=== PATIENT | female | born 1955 | race Caucasian/White ===

== ENCOUNTER 2022-05-31 11:40 | Observation (INO) | payer BC, OTHER ==
[~2022-05-31] VITALS: Ht 177 cm; Wt 92.0 kg
[2022-05-31] VITALS (14 sets, daily range): BP systolic 120–155; BP diastolic 66–103
--- NOTE | 2022-05-31 11:49 | ED Chest Pain ---
General Stated Complaint: ARRHYTHMIA History of Present Illness Date Seen by Provider: May 31, 2022 Time Seen by Provider: 11:41 Initial Comments 68-year-old female with PMH of hypertension/anxiety/past breast cancer with mastectomy, is sent here from the clinic with complaints of left-sided chest pain which began today morning. Pain has been on and off and sometimes radiating down her left arm. Denies history of heart attacks or strokes. Patient takes daily lisinopril for her blood pressure and has been compliant with it. She has also taken it today. The blood pressure medication was newly started 2 months back. EMS reports that when they arrived on scene, the patient's blood pressure had a systolic of 200 over 180s, and it improved to 160/90 after receiving the first nitrate in the ambulance. In the ER patient continues to have chest pain intermittently. Denies fever, cough, shortness of breath, palpitations, diarrhea, nausea and vomiting, abdominal pain, headache, blurry vision. Patient denies taking any drugs or alcohol. Allergies and Home Medications Allergies Coded Allergies: No Known Drug Allergies (Unverified , 05/31/22) Patient Home Medication List Home Medication List Reviewed: Yes Review of Systems Review of Systems Constitutional: no symptoms reported EENTM: No Symptoms Reported Respiratory: No Symptoms Reported Cardiovascular: Chest Pain Gastrointestinal: No Symptoms Reported Genitourinary: No Symptoms Reported Musculoskeletal: no symptoms reported Skin: no symptoms reported Psychiatric/Neurological: No Symptoms Reported Endocrine: No Symptoms Reported Hematologic/Lymphatic: No Symptoms Reported Physical Exam Vital Signs Vital Signs - First Documented 05/31/22 11:40 Temp 36.2 Pulse 89 Resp 16 B/P (MAP) 162/87 (112) Pulse Ox 98 O2 Delivery Room Air Capillary Refill : Height, Weight, BMI Height: '" Weight: lbs. oz. kg; BMI Method: General Appearance: WD/WN, Mild Distress HEENT: PERRL/EOMI, Normal ENT Inspection Neck: Full Range of Motion, Normal Inspection, Non Tender, Supple Respiratory: Chest Non Tender, Lungs Clear, Normal Breath Sounds, No Accessory Muscle Use, No Respiratory Distress Cardiovascular: Regular Rate, Rhythm, No Murmur, Normal Peripheral Pulses Gastrointestinal: Normal Bowel Sounds, Non Tender, Soft Extremity: Normal Range of Motion Neurologic/Psychiatric: Alert, Oriented x3, No Motor/Sensory Deficits Skin: Normal Color Lymphatic: No Adenopathy Progress/Results/Core Measures Results/Orders Lab Results Laboratory Tests Test 05/31/22 11:49 05/31/22 13:00 05/31/22 13:21 Range/Units White Blood Count 7.1 4.3-11.0 10^3/uL Red Blood Count 4.45 3.80-5.11 10^6/uL Hemoglobin 13.1 11.5-16.0 g/dL Hematocrit 40 35-52 % Mean Corpuscular Volume 89 80-99 fL Mean Corpuscular Hemoglobin 29 25-34 pg Mean Corpuscular Hemoglobin Concent 33 32-36 g/dL Red Cell Distribution Width 12.9 10.0-14.5 % Platelet Count 249 130-400 10^3/uL Mean Platelet Volume 9.3 9.0-12.2 fL Immature Granulocyte % (Auto) 1 % Neutrophils (%) (Auto) 48 42-75 % Lymphocytes (%) (Auto) 42 12-44 % Monocytes (%) (Auto) 6 0-12 % Eosinophils (%) (Auto) 2 0-10 % Basophils (%) (Auto) 1 0-10 % Neutrophils # (Auto) 3.4 1.8-7.8 10^3/uL Lymphocytes # (Auto) 3.0 1.0-4.0 10^3/uL Monocytes # (Auto) 0.4 0.0-1.0 10^3/uL Eosinophils # (Auto) 0.2 0.0-0.3 10^3/uL Basophils # (Auto) 0.1 0.0-0.1 10^3/uL Immature Granulocyte # (Auto) 0.1 0.0-0.1 10^3/uL Prothrombin Time 12.7 12.2-14.7 SEC INR Comment 0.9 0.8-1.4 Activated Partial Thromboplast Time 26 24-35 SEC Sodium Level 140 135-145 MMOL/L Potassium Level 3.6 3.6-5.0 MMOL/L Chloride Level 104 98-107 MMOL/L Carbon Dioxide Level 25 21-32 MMOL/L Anion Gap 11 5-14 MMOL/L Blood Urea Nitrogen 13 7-18 MG/DL Creatinine 0.81 0.60-1.30 MG/DL Estimat Glomerular Filtration Rate 80 BUN/Creatinine Ratio 16 Glucose Level 135 H 70-105 MG/DL Calcium Level 9.8 8.5-10.1 MG/DL Corrected Calcium 9.5 8.5-10.1 MG/DL Magnesium Level 1.9 1.6-2.4 MG/DL Total Bilirubin 0.3 0.1-1.0 MG/DL Aspartate Amino Transf (AST/SGOT) 12 5-34 U/L Alanine Aminotransferase (ALT/SGPT) 14 0-55 U/L Alkaline Phosphatase 110 40-136 U/L Troponin I < 0.30 < 0.30 <0.30 NG/ML Total Protein 7.6 6.4-8.2 GM/DL Albumin 4.4 3.2-4.5 GM/DL Urine Color YELLOW Urine Clarity CLEAR Urine pH 6.0 5-9 Urine Specific [place] <=1.005 1.016-1.022 Urine Protein NEGATIVE NEGATIVE Urine Glucose (UA) NEGATIVE NEGATIVE Urine Ketones NEGATIVE NEGATIVE Urine Nitrite NEGATIVE NEGATIVE Urine Bilirubin NEGATIVE NEGATIVE Urine Urobilinogen 0.2 < = 1.0 MG/DL Urine Leukocyte Esterase 1+ H NEGATIVE Urine RBC (Auto) TRACE-I H NEGATIVE Urine RBC RARE /HPF Urine WBC RARE /HPF Urine Squamous Epithelial Cells 0-2 /HPF Urine Crystals NONE /LPF Urine Bacteria NEGATIVE /HPF Urine Casts NONE /LPF Urine Mucus NEGATIVE /LPF Urine Culture Indicated NO Urine Opiates Screen POSITIVE H NEGATIVE Urine Oxycodone Screen NEGATIVE NEGATIVE Urine Methadone Screen NEGATIVE NEGATIVE Urine Propoxyphene Screen NEGATIVE NEGATIVE Urine Barbiturates Screen NEGATIVE NEGATIVE Ur Tricyclic Antidepressants Screen NEGATIVE NEGATIVE Urine Phencyclidine Screen NEGATIVE NEGATIVE Urine Amphetamines Screen NEGATIVE NEGATIVE Urine Methamphetamines Screen NEGATIVE NEGATIVE Urine Benzodiazepines Screen NEGATIVE NEGATIVE Urine Cocaine Screen NEGATIVE NEGATIVE Urine Cannabinoids Screen NEGATIVE NEGATIVE My Orders Orders - HARPER MICHELLE MD Chest 1 View Ap/Pa Only (05/31/22 11:51) Cbc With Automated Diff (05/31/22 11:51) Comprehensive Metabolic Panel (05/31/22 11:51) Drug Screen Stat (Urine) (05/31/22 11:51) Magnesium (05/31/22 11:51) Thyroid Stimulating Hormone (05/31/22 11:51) Ua Culture If Indicated (05/31/22 11:51) Troponin I Fs (05/31/22 11:51) Ekg Tracing (05/31/22 11:52) Famotidine Injection (Pepcid Injection) (05/31/22 12:00) Protime With Inr (05/31/22 11:58) Partial Thromboplastin Time (05/31/22 11:58) O2 (05/31/22 11:58) Monitor-Rhythm Ecg Trace Only (05/31/22 11:58) Nitroglycerin 0.4 Mg Btl 25's (Nitrostat (05/31/22 12:00) Morphine Injection (Morphine Injection (05/31/22 11:58) Ed Iv/Invasive Line Start (05/31/22 11:58) Nitroglycerin 0.4 Mg Btl 25's (Nitrostat (05/31/22 11:58) Morphine Injection (Morphine Injection (05/31/22 11:59) Lorazepam Injection (Ativan Injection) (05/31/22 12:54) Troponin I Fs (05/31/22 13:05) Lorazepam Tablet (Ativan Tablet) (05/31/22 13:05) Ekg Tracing (05/31/22 13:05) Lorazepam Injection (Ativan Injection) (05/31/22 13:15) Medications Given in ED Current Medications Medications Dose Ordered Sig/Gianni Route Start Time Stop Time Status Last Admin Dose Admin Famotidine 20 mg ONCE ONCE IVP 05/31/22 12:00 05/31/22 12:01 DC 05/31/22 12:02 20 MG Lorazepam 0.5 mg ONCE ONCE IVP 05/31/22 13:15 05/31/22 13:16 DC 05/31/22 13:00 0.5 MG Nitroglycerin 0.4 mg UD PRN SL 05/31/22 12:00 05/31/22 12:05 0.4 MG Vital Signs/I&O 05/31/22 11:40 Temp 36.2 Pulse 89 Resp 16 B/P (MAP) 162/87 (112) Pulse Ox 98 O2 Delivery Room Air Progress Progress Note : Progress Note CHEST PAIN: STABLE ANGINA: - CXR: normal - Troponin and EKG x2 is non-ischemic - Labs normal - UA normal - ASA 324 given by EMS along with 1st nitrate - Nitrate sublingual x2, Morphine 1mg iv, and Pepcid 20mg iv in ER with improvement in pain but pain is 3/10 - Discussed with hospitlaist and heavy equipment diesel mechanic and will transfer for observation and monitoring. HYPERTENSIVE URGENCY, resolved: - When EMS arrived on scene, pt's BP was 200'2/ 180's, after first nitrate BP improved to 160/ 90, after completion of nitrates in ER, BP is now normal Diagnostic Imaging Diagonstic Imaging: Xray Plain Films/CT/US/NM/MRI: chest Comments [facility]. [place], [place] NAME: ARNEL GODOY [facility] REC#: [id number] PT STATUS: REG ER : 07/27/1953 PHYSICIAN: HARPER MICHELLE MD ADMIT DATE: 05/31/22/ER FS Draft Date of Exam:05/31/22 CHEST 1 VIEW AP/PA ONLY INDICATION: chest pain. TECHNIQUE: Single view chest 11:54 AM. CORRELATION STUDY: None FINDINGS: The heart size, mediastinal configuration and pulmonary vascularity are within normal limits. The lungs are clear with no consolidating infiltrate. There is no significant effusion or pneumothorax. IMPRESSION: 1. Negative appearing single view chest. Dictated on workstation # [id number] Dict: 05/31/22 1202 Trans: 05/31/22 1203 DO [id number] Interpreted by: SHAHID ISRAEL DO Electronically signed by: Departure Impression Primary Impression: Chest pain Qualified Codes: R07.9 - Chest pain, unspecified Additional Impression: Stable angina Disposition: 30 STILL A PATIENT Condition: Stable Admissions Decision to Admit Reason: Admit from ER (General) Decision to Admit/Date: May 31, 2022 Time/Decision to Admit Time: 13:30 Transfer Transfer Reason: Exceeds level of care Time Spoke to Accepting Phy: 14:00 Transfer Progress Notes Discussed with Dr Tatum - Admit to telemetry Obs Transfer Facility: [facility] Method of Transfer: EMS HARPER MICHELLE MD May 31, 2022 11:49
[2022-05-31 11:55] LABS: BASOPHILS # (AUTO) 0.1 10^3/uL (0.0-0.1); BASOPHILS % (AUTO) 1 % (0-10); EOSINOPHILS # (AUTO) 0.2 10^3/uL (0.0-0.3); EOSINOPHILS % (AUTO) 2 % (0-10); HEMATOCRIT 40 % (35-52); HEMOGLOBIN 13.1 g/dL (11.5-16.0); LYMPHOCYTES % (AUTO) 42 % (12-44); MEAN CORPUSCULAR HEMOGLOBIN 29 pg (25-34); MEAN CORPUSCULAR HGB CONC 33 g/dL (32-36); MEAN CORPUSCULAR VOLUME 89 fL (80-99); MEAN PLATELET VOLUME 9.3 fL (9.0-12.2); MONOCYTES # (AUTO) 0.4 10^3/uL (0.0-1.0); MONOCYTES % (AUTO) 6 % (0-12); NEUTROPHILS # (AUTO) 3.4 10^3/uL (1.8-7.8); NEUTROPHILS % (AUTO) 48 % (42-75); PLATELET COUNT 249 10^3/uL (130-400); WHITE BLOOD COUNT 7.1 10^3/uL (4.3-11.0)
[2022-05-31] MEDS ORDERED: NITROGLYCERIN 0.4 MG SL TABS BTL 25'S SL ONE (11:58)
[2022-05-31] MEDS ORDERED: morphine INJ 10 MG/ML 1ML (SYR OR VIAL) IVP STA (11:58)
[2022-05-31] MEDS ORDERED: morphine INJ 10 MG/ML 1ML (SYR OR VIAL) ONE (11:59)
[2022-05-31] MEDS ORDERED: FAMOTIDINE 20MG/2ML IV (PEPCID) IVP ONE (12:00)
[2022-05-31] MEDS: NITROGLYCERIN 0.4 MG SL TABS BTL 25'S SL PRN ×4 (12:03→20:27)
--- NOTE | 2022-05-31 12:03 | Diagnostic Imaging Report ---
INDICATION: chest pain. TECHNIQUE: Single view chest 11:54 AM. CORRELATION STUDY: None FINDINGS: The heart size, mediastinal configuration and pulmonary vascularity are within normal limits. The lungs are clear with no consolidating infiltrate. There is no significant effusion or pneumothorax. IMPRESSION: 1. Negative appearing single view chest. Dictated by: Dictated on workstation # [id number]
[2022-05-31 12:22] LABS: ALANINE AMINOTRANSFERASE 14 U/L (0-55); ALBUMIN 4.4 GM/DL (3.2-4.5); ALKALINE PHOSPHATASE 110 U/L (40-136); BILIRUBIN,TOTAL 0.3 MG/DL (0.1-1.0); BUN/CREATININE RATIO 16; CALCIUM 9.8 MG/DL (8.5-10.1); CARBON DIOXIDE 25 MMOL/L (21-32); CHLORIDE 104 MMOL/L (98-107); CREATININE SERUM 0.81 MG/DL (0.60-1.30); GFR ESTIMATED 80; GLUCOSE 135 MG/DL (70-105); MAGNESIUM 1.9 MG/DL (1.6-2.4); POTASSIUM 3.6 MMOL/L (3.6-5.0); SODIUM 140 MMOL/L (135-145); TOTAL PROTEIN 7.6 GM/DL (6.4-8.2)
[2022-05-31 12:41] LABS: INR 0.9 (0.8-1.4); PROTHROMBIN TIME PATIENT 12.7 SEC (12.2-14.7)
[2022-05-31] MEDS ORDERED: LORazepam INJ 2 MG/ML (ATIVAN) VIAL ONE (12:54)
[2022-05-31] MEDS ORDERED: LORazepam 0.5 MG (ATIVAN) TABLET PO STA (13:05)
[2022-05-31] MEDS ORDERED: LORazepam INJ 2 MG/ML (ATIVAN) VIAL IVP ONE (13:15)
[2022-05-31 13:33] LABS: BILIRUBIN,URINE NEGATIVE (NEGATIVE); CLARITY,URINE CLEAR; COLOR,URINE YELLOW; GLUCOSE, URINE (UA) NEGATIVE (NEGATIVE); KETONES,URINE NEGATIVE (NEGATIVE); LEUKOCYTE ESTERASE ,URINE 1+ (NEGATIVE); NITRITE,URINE NEGATIVE (NEGATIVE); PROTEIN,URINE NEGATIVE (NEGATIVE)
[2022-05-31 13:39] LABS: BACTERIA,URINE NEGATIVE /HPF; RBC,URINE RARE /HPF; SQUAMOUS EPITHELIAL CELL,UR 0-2 /HPF; WBC,URINE RARE /HPF
[2022-05-31 13:40] LABS: AMPHETAMINE SCREEN, URINE NEGATIVE (NEGATIVE); BARBITURATE SCREEN URINE NEGATIVE (NEGATIVE); BENZODIAZEPINES SCREEN URINE NEGATIVE (NEGATIVE); CANNABINOID SCREEN, URINE NEGATIVE (NEGATIVE); COCAINE SCREEN URINE NEGATIVE (NEGATIVE); METHADONE STAT NEGATIVE (NEGATIVE); OPIATE SCREEN URINE POSITIVE (NEGATIVE); OXYCODONE STAT NEGATIVE (NEGATIVE); PROPOXYPHENE STAT NEGATIVE (NEGATIVE); TRICYCLIC ANTIDEPRESSANTS SCRE NEGATIVE (NEGATIVE)
[2022-05-31] MEDS ORDERED: PATIENT MAY USE OWN MEDS, ALL PO SCH (15:30)
[2022-05-31] MEDS ORDERED: ONDANSETRON 4 MG/2 ML (SDV) Z0FRAN IVP PRN (15:30)
[2022-05-31] MEDS ORDERED: morphine INJ 4 MG/ML 1 ML (VIAL/SYRINGE) IV PRN (15:30)
--- NOTE | 2022-05-31 17:11 | Consultation-Cardiology ---
HPI-Cardiology Cardiology Consultation: Date of Consultation 05/31/22 Date of Admission 05/31/22 Attending Physician Kelli Brewster Admitting Physician Admitting Physician: Nancy Tatum MD Attending Physician: Nancy Tatum MD Consulting Physician DANIEL COLE JR, MD HPI: Time Seen by a Provider: 17:23 Chief Complaint: REASON FOR CONSULTATION: Chest pain. I had the pleasure of seeing Rosetta on the cardiac stepdown unit at [facility] in [place], [place] today. She has no known history of coronary artery disease. This morning when she woke up to get ready for work, she had general malaise. She did not feel "right" but did not have any specific complaint right at that time. She got ready for work and then she started having a slight discomfort in the center of her chest. She denies associated complaints. She went to work and then the chest discomfort became more significant. This felt like a pressure in her chest as well as a sharp pain. At times this made her feel short of breath. She also had some back pain in between her shoulder blades. She thought that maybe her blood pressure was high so she went to an urgent care and her blood pressure was 200/100 mmHg. The urgent care called an ambulance and she was taken to the emergency room in [place] for further evaluation. She had 2 negative troponin levels and an unremarkable electrocardiogram but due to persistent chest discomfort, she was transferred to our hospital for further treatment and evaluation. In the outside hospital she was also given some sublingual nitroglycerin which she feels as though helped with the pain but this did not completely resolved. She does not recall ever having this sort of discomfort in the past. She denies paroxysmal nocturnal dyspnea, orthopnea or palpitations. She did have some slight lightheadedness with the chest discomfort today but denies any syncope. She has had intermittent peripheral edema mainly involving her right leg in the past. She actually had a venous ablation on the right lower extremity a few years ago. Because of the chest pain, a cardiology consultation was requested. Certain portions of this document may have been dictated utilizing voice recognition technology. Inherent to this technology, typographical and grammatical errors may exist. As much as I am diligent to identify and correct these mistakes, some errors may remain in the document. Review of Systems-Cardiology Review of Systems Other comments Review of 10 organ systems is as per the history of present illness, otherwise negative. [id number] Hx Patient Social History Marrital Status: Employed/Student: employed Smoking Status: Never a Smoker Have you traveled recently?: No Alcohol Use?: No Pt feels they are or have been: No Past Medical History PMH As described under Assessment. Family Medical History Family Medical History: Her father had heart disease in his 50's but lived to his 80's. Allergies and Home Medications Allergies Coded Allergies: Penicillins (Verified Allergy, Unknown, Rash, 05/31/22) amoxicillin (Verified Allergy, Unknown, Rash, 05/31/22) Patient Home Medication List Home Medication List Reviewed: Yes Exam Vital Signs Vital Signs Date Time Temp Pulse Resp B/P (MAP) Pulse Ox O2 Delivery O2 Flow Rate FiO2 05/31/22 16:30 74 15 131/78 (107) 96 Room Air 05/31/22 15:44 36.3 Physical Exam General: Alert. No acute distress. Well nourished and appears stated age. Eye: Extraocular movements are intact. Conjunctivae are clear. There are no xanthelasma. HENT: Normocephalic. Atraumatic. Carotid pulsations 2/2 without bruits. Neck: Jugular venous pressure does not appear elevated. No thyromegaly appreciated. Respiratory: Lungs are clear to auscultation. Respirations are non-labored. Breath sounds are equal. Symmetrical chest wall expansion. Cardiovascular: Normal rate. Regular rhythm. No murmur. No gallop. Point of maximal impulse is not appear displaced. Good pulses equal in all extremities. No edema. Gastrointestinal: Soft. Normal bowel sounds. Skin: Skin turgor is normal. There is no pallor. Musculoskeletal: No kyphosis or scoliosis appreciated. Neurologic: Alert and oriented to person, place, time. Cranial nerves 3-12 appear grossly intact. The patient has good motor tone strength in the upper and lower extremities bilaterally. Psychiatric: Cooperative. Appropriate mood & affect. Labs Laboratory Tests Test 05/31/22 11:49 05/31/22 13:00 05/31/22 13:21 Range/Units White Blood Count 7.1 4.3-11.0 10^3/uL Red Blood Count 4.45 3.80-5.11 10^6/uL Hemoglobin 13.1 11.5-16.0 g/dL Hematocrit 40 35-52 % Mean Corpuscular Volume 89 80-99 fL Mean Corpuscular Hemoglobin 29 25-34 pg Mean Corpuscular Hemoglobin Concent 33 32-36 g/dL Red Cell Distribution Width 12.9 10.0-14.5 % Platelet Count 249 130-400 10^3/uL Mean Platelet Volume 9.3 9.0-12.2 fL Immature Granulocyte % (Auto) 1 % Neutrophils (%) (Auto) 48 42-75 % Lymphocytes (%) (Auto) 42 12-44 % Monocytes (%) (Auto) 6 0-12 % Eosinophils (%) (Auto) 2 0-10 % Basophils (%) (Auto) 1 0-10 % Neutrophils # (Auto) 3.4 1.8-7.8 10^3/uL Lymphocytes # (Auto) 3.0 1.0-4.0 10^3/uL Monocytes # (Auto) 0.4 0.0-1.0 10^3/uL Eosinophils # (Auto) 0.2 0.0-0.3 10^3/uL Basophils # (Auto) 0.1 0.0-0.1 10^3/uL Immature Granulocyte # (Auto) 0.1 0.0-0.1 10^3/uL Prothrombin Time 12.7 12.2-14.7 SEC INR Comment 0.9 0.8-1.4 Activated Partial Thromboplast Time 26 24-35 SEC Sodium Level 140 135-145 MMOL/L Potassium Level 3.6 3.6-5.0 MMOL/L Chloride Level 104 98-107 MMOL/L Carbon Dioxide Level 25 21-32 MMOL/L Anion Gap 11 5-14 MMOL/L Blood Urea Nitrogen 13 7-18 MG/DL Creatinine 0.81 0.60-1.30 MG/DL Estimat Glomerular Filtration Rate 80 BUN/Creatinine Ratio 16 Glucose Level 135 H 70-105 MG/DL Calcium Level 9.8 8.5-10.1 MG/DL Corrected Calcium 9.5 8.5-10.1 MG/DL Magnesium Level 1.9 1.6-2.4 MG/DL Total Bilirubin 0.3 0.1-1.0 MG/DL Aspartate Amino Transf (AST/SGOT) 12 5-34 U/L Alanine Aminotransferase (ALT/SGPT) 14 0-55 U/L Alkaline Phosphatase 110 40-136 U/L Troponin I < 0.30 < 0.30 <0.30 NG/ML Total Protein 7.6 6.4-8.2 GM/DL Albumin 4.4 3.2-4.5 GM/DL Thyroid Stimulating Hormone (TSH) 2.38 0.35-4.94 UIU/ML Urine Color YELLOW Urine Clarity CLEAR Urine pH 6.0 5-9 Urine Specific [place] <=1.005 1.016-1.022 Urine Protein NEGATIVE NEGATIVE Urine Glucose (UA) NEGATIVE NEGATIVE Urine Ketones NEGATIVE NEGATIVE Urine Nitrite NEGATIVE NEGATIVE Urine Bilirubin NEGATIVE NEGATIVE Urine Urobilinogen 0.2 < = 1.0 MG/DL Urine Leukocyte Esterase 1+ H NEGATIVE Urine RBC (Auto) TRACE-I H NEGATIVE Urine RBC RARE /HPF Urine WBC RARE /HPF Urine Squamous Epithelial Cells 0-2 /HPF Urine Crystals NONE /LPF Urine Bacteria NEGATIVE /HPF Urine Casts NONE /LPF Urine Mucus NEGATIVE /LPF Urine Culture Indicated NO Urine Opiates Screen POSITIVE H NEGATIVE Urine Oxycodone Screen NEGATIVE NEGATIVE Urine Methadone Screen NEGATIVE NEGATIVE Urine Propoxyphene Screen NEGATIVE NEGATIVE Urine Barbiturates Screen NEGATIVE NEGATIVE Ur Tricyclic Antidepressants Screen NEGATIVE NEGATIVE Urine Phencyclidine Screen NEGATIVE NEGATIVE Urine Amphetamines Screen NEGATIVE NEGATIVE Urine Methamphetamines Screen NEGATIVE NEGATIVE Urine Benzodiazepines Screen NEGATIVE NEGATIVE Urine Cocaine Screen NEGATIVE NEGATIVE Urine Cannabinoids Screen NEGATIVE NEGATIVE ECG Impression ECG Comment Electrocardiogram from the outside emergency room as well is here in our hospital both shows sinus rhythm with early transition. Diagnosis/Problems Diagnosis/Problems (1) Chest pain Assessment & Plan: Exact etiology unclear. Some of her discomfort sounds cardiac whereas some of this more pleuritic type of chest discomfort sounds noncardiac. Her only cardiac risk factor seems to be hypertension. She does not have any ischemic changes on her electrocardiogram but does have early transition which could be a sign of an old posterior myocardial infarction or just secondary to lead placement on the chest leads. I have ordered a D-dimer to screen for possible pulmonary embolism. I will also give her gastrointestinal cocktail and start her on a proton pump inhibitor. I have also ordered low strength aspirin. I have ordered an echocardiogram for the morning. Unfortunately, we are coming into a long weekend and will not be able to perform any sort of stress test until Friday. At this time, I do not see any reason for an invasive cardiac evaluation. (2) Abnormal electrocardiogram Assessment & Plan: As above, she has a borderline abnormal electrocardiogram showing early transition. However, there is no other obvious evidence of prior infarct or ischemia at rest. We will proceed as above. (3) Primary hypertension Assessment & Plan: I have ordered her home dose of lisinopril. This may need to be adjusted if her blood pressure remains elevated. (4) Chronic venous insufficiency of lower extremity Assessment & Plan: She had a previous venous ablation of the right lower extremity. I have ordered a D-dimer to see whether or not she may venous thrombosis or embolism causing her chest discomfort. DANIEL COLE JR, MD May 31, 2022 17:11
[2022-05-31] MEDS ORDERED: ANTACID SUSP 30 ML UDC (MYLANTA) PO NR (17:45)
[2022-05-31] MEDS ORDERED: PANTOPRAZOLE 40 MG (PROTONIX) TAB PO NR (17:45)
[2022-05-31] MEDS ORDERED: LIDOCAINE 2% VISCOUS 15 ML UDC PO NR (17:45)
[2022-05-31] MEDS ORDERED: IOHEXOL 350 MG/ML 100 ML (OMNIPAQUE 350) VIAL IV ONE (18:30)
[2022-05-31] MEDS ORDERED: CATHETER FLUSH 10 ML SYR IV PRN (18:30)
[2022-05-31] MEDS ORDERED: ENOXAPARIN 100 MG/1 ML (LOVENOX) SYR SC NR (18:30)
[2022-05-31] MEDS ORDERED: HOLD METFORMIN - RECEIVED CONTRAST 20 ML VIAL IV SCH (18:30)
[2022-05-31] MEDS ORDERED: NS 100 ML (IVPB) BAG IV ONE (18:30)
[2022-05-31] MEDS ORDERED: ACETAMINOPHEN 500 MG TAB (TYLENOL) PO PRN (19:00)
--- NOTE | 2022-05-31 20:34 | Diagnostic Imaging Report ---
PROCEDURE: CT angiography of the chest with contrast. TECHNIQUE: Multiple contiguous axial images were obtained through the chest after uneventful bolus administration of intravenous contrast. 3D reconstructed CTA MIP acquisitions were also performed. Auto Exposure Controls were utilized during the CT exam to meet ALARA standards for radiation dose reduction. INDICATION: Chest pain, elevated D-dimer. COMPARISON: Radiographs of the chest from the same date. FINDINGS: No significant adenopathy within the chest. No aneurysmal dilatation of the thoracic aorta. The heart is within normal limits in size. No significant pericardial effusion. No pleural effusion. The trachea is patent. No pneumothorax. Subpleural atelectasis and fibrosis is noted, particularly posteriorly. Mild bibasilar scarring and/or atelectasis. No significant filling defect within the central or segmental pulmonary arteries. Heterogeneous enhancement of the pancreas is partially visualized, though this is not well included within the [id number] and this is a different phase of enhancement than the rest of the chest. Surgical clips within the chest, bilaterally. Bilateral mastectomies. No acute osseous abnormality. IMPRESSION: 1. No significant pulmonary embolus. 2. Heterogeneous enhancement of the pancreas. This is favored to simply relate to phase of enhancement. Recommend correlation with laboratory values. If there is clinical concern for the pancreas, itself, then a dedicated CT of the abdomen with contrast would be recommended. 3. Mild bilateral interstitial lung disease versus atelectasis. Dictated by: Dictated on workstation # [id number]
[2022-06-01] VITALS: BP 134/89
[2022-06-01 04:00] VITALS: BP 113/74
[2022-06-01 05:08] LABS: HEMATOCRIT 37 % (35-52); MEAN CORPUSCULAR HEMOGLOBIN 30 pg (25-34); MEAN CORPUSCULAR HGB CONC 32 g/dL (32-36); MEAN CORPUSCULAR VOLUME 91 fL (80-99); MEAN PLATELET VOLUME 9.5 fL (9.0-12.2); PLATELET COUNT 221 10^3/uL (130-400)
[2022-06-01 05:22] LABS: POTASSIUM 3.9 MMOL/L (3.6-5.0)
[2022-06-01 05:23] LABS: CALCIUM 9.1 MG/DL (8.5-10.1)
[2022-06-01 05:27] LABS: CREATININE SERUM 0.77 MG/DL (0.60-1.30)
[2022-06-01] MEDS ORDERED: VENlafaxine XR 75 MG (EFFEXOR XR) CAP PO SCH (07:00)
[2022-06-01 08:27] VITALS: BP 122/79
--- NOTE | 2022-06-01 08:59 | Short Stay Summary-Hospitalist ---
History of Present Illness HPI/Chief Complaint Patient is 66-year-old female with a past medical history of breast cancer and hypertension who presented to the emergency department due to chest pain. She states that she woke up yesterday morning feeling "not right." She went to work and continued to have this off feeling but developed some chest discomfort and tingling in her arm. She also felt like she could hear noises in her ears which she associates with high blood pressure. She decided to seek evaluation in urgent care where they found her blood pressure to be over 200 systolic and over 100 diastolic. They referred her to the emergency department for further work-up. She was found to have a negative troponin and EKG but was admitted for ACS rule out. She was given nitro which helped to bring her blood pressure down and subsequently resolved her chest pain. This morning she has no complaints and is feeling better. Her blood pressure has improved significantly. Source: patient Date Seen 06/01/22 Time Seen by a Provider: 08:57 Attending Physician Kelli Brewster PCP Admitting Physician: Chelly Tatum MD Attending Physician: Chelly Tatum MD Referring Physician Date of Admission May 31, 2022 at 15:33 Home Medications & Allergies Home Medications Reviewed patient Home Medication Reconciliation performed by pharmacy medication reconciliations landscape management technician and/or nursing. Patients Allergies have been reviewed. Allergies Allergies Coded Allergies Penicillins (Verified Allergy, Unknown, Rash, 05/31/22) amoxicillin (Verified Allergy, Unknown, Rash, 05/31/22) Past Pnjbino-Psoaih-Qncumh Hx Patient Social History Marrital Status: Employed/Student: employed Tobacco Use?: No Smoking Status: Never a Smoker Use of E-Cig and/or Vaping dev: No Substance use?: No Alcohol Use?: No Pt feels they are or have been: No Immunizations Up To Date First/Initial COVID19 Vaccinat: MAY 2021 MODERNA Second COVID19 Vaccination Eran: JUL 2021 MODERN Current Status status: No Advance Directives: No Communicates: Verbally Primary Language: Arabic Preferred Spoken Language: Arabic Is interpretation needed?: No Past Medical History Hypertension Breast What Type of Treatment Did You: Chemotherapy, Surgical Intervention Family Medical History Reviewed Nursing Family Hx Heart Disease (dad- [place] 60s) Review of Systems Constitutional: No chills EENTM: see HPI Respiratory: No cough, No dyspnea on exertion, No short of breath Cardiovascular: chest pain; No edema, No Hx of Intervention, No palpitations Gastrointestinal: no symptoms reported Genitourinary: no symptoms reported Musculoskeletal: no symptoms reported Skin: no symptoms reported Psychiatric/Neurological: No Symptoms Reported Physical Exam Physical Exam Vital Signs Vital Signs - First Documented 05/31/22 11:40 Temp 36.2 Pulse 89 Resp 16 B/P (MAP) 162/87 (112) Pulse Ox 98 O2 Delivery Room Air Capillary Refill : Less Than 3 Seconds Height, Weight, BMI Height: '" Weight: lbs. oz. kg; 29.36 BMI Method: General Appearance: No Apparent Distress, WD/WN HEENT: PERRL/EOMI, Moist Mucous Membranes; No Scleral Icterus (L), No Scleral Icterus (R) Neck: Normal Inspection, Supple Respiratory: Lungs Clear, No Accessory Muscle Use, No Respiratory Distress Cardiovascular: Regular Rate, Rhythm, No Murmur, Normal Peripheral Pulses Gastrointestinal: Normal Bowel Sounds, Non Tender, Soft; No Distended, No Guarding Extremity: Normal Capillary Refill, No Calf Tenderness, No Pedal Edema Neurologic/Psychiatric: Alert, Oriented x3, Normal Mood/Affect; No Aphasia, No Facial Droop Skin: Normal Color, Warm/Dry Results Results/Procedures Labs Laboratory Tests 05/31/22 11:49 06/01/22 04:45 06/01/22 04:47 Patient resulted labs reviewed. Imaging: Reviewed Imaging Report Imaging [facility], [place] NAME: ARNEL GODOY [facility] REC#: [id number] PT STATUS: REG ER : 1955 PHYSICIAN: HARPER MICHELLE MD ADMIT DATE: 05/31/22/ER FS Signed Date of Exam:05/31/22 CHEST 1 VIEW AP/PA ONLY INDICATION: chest pain. TECHNIQUE: Single view chest 11:54 AM. CORRELATION STUDY: None FINDINGS: The heart size, mediastinal configuration and pulmonary vascularity are within normal limits. The lungs are clear with no consolidating infiltrate. There is no significant effusion or pneumothorax. IMPRESSION: 1. Negative appearing single view chest. Dictated by: Dictated on workstation # [id number] Dict: 05/31/22 1202 Trans: 05/31/221411 DO Interpreted by: SHAHID ISRAEL DO Electronically signed by: SHAHID ISRAEL DO 05/31/221411 [facility] [place], [place] NAME: ARNEL GODOY [facility] REC#: [id number] PT STATUS: ADM [place] : 1955 PHYSICIAN: DANIEL WONG JR, MD ADMIT DATE: 05/31/22/[facility] Signed Date of Exam:05/31/22 CT ANGIO CHEST W PROCEDURE: CT angiography of the chest with contrast. TECHNIQUE: Multiple contiguous axial images were obtained through the chest after uneventful bolus administration of intravenous contrast. 3D reconstructed CTA MIP acquisitions were also performed. Auto Exposure Controls were utilized during the CT exam to meet ALARA standards for radiation dose reduction. INDICATION: Chest pain, elevated D-dimer. COMPARISON: Radiographs of the chest from the same date. FINDINGS: No significant adenopathy within the chest. No aneurysmal dilatation of the thoracic aorta. The heart is within normal limits in size. No significant pericardial effusion. No pleural effusion. The trachea is patent. No pneumothorax. Subpleural atelectasis and fibrosis is noted, particularly posteriorly. Mild bibasilar scarring and/or atelectasis. No significant filling defect within the central or segmental pulmonary arteries. Heterogeneous enhancement of the pancreas is partially visualized, though this is not well included within the [id number] and this is a different phase of enhancement than the rest of the chest. Surgical clips within the chest, bilaterally. Bilateral mastectomies. No acute osseous abnormality. IMPRESSION: 1. No significant pulmonary embolus. 2. Heterogeneous enhancement of the pancreas. This is favored to simply relate to phase of enhancement. Recommend correlation with laboratory values. If there is clinical concern for the pancreas, itself, then a dedicated CT of the abdomen with contrast would be recommended. 3. Mild bilateral interstitial lung disease versus atelectasis. Dictated by: Dictated on workstation # [id number] Dict: 05/31/222001 Trans: 05/31/222148 PJE [id number] Interpreted by: TRISTIAN DOMÍNGUEZ MD Electronically signed by: TRISTIAN DOMÍNGUEZ MD 05/31/222148 Short Stay Diagnosis Discharge Diagnosis-Short Stay Admission Diagnosis Chest pain Final Discharge Diagnosis HTN Urgency Conclusion Plan HTN Urgency Chest pain HLD BP was 200/100 at urgent care prior to arrival Chest pain improved with nitro and BP control Cardiology consulted BP now well controlled Troponin negastive x3 CTA without evidence of PE Discharge home with outpatient follow up with Dr Wong Diagnosis/Problems Diagnosis/Problems (1) Hypertensive urgency (2) Chest pain (3) Mixed hyperlipidemia (4) Chronic venous insufficiency of lower extremity Clinical Quality Measures AMI/AHF: ASA po Prior to arrival: Yes ([phone]) CHELLY TATUM MD Jun 01, 2022 08:59
[2022-06-01] MEDS ORDERED: ASPIRIN E.C. 81 MG (ECOTRIN) TAB PO SCH (09:00)
[2022-06-01] MEDS ORDERED: PANTOPRAZOLE 40 MG (PROTONIX) TAB PO SCH (09:00)
[2022-06-01] MEDS ORDERED: lisINopril 10 MG (PRINIVIL) TABLET PO SCH (09:00)
[2022-06-01] MEDS ORDERED: ATOR20TA49 PO (09:15)
[2022-06-01] MEDS ORDERED: PANT40TA2 PO (09:17)
--- NOTE | 2022-06-01 09:19 | Cardiology Progress Note ---
Progress Note-Cardiology Events since last exam Date Seen by Provider: Jun 01, 2022 Time Seen by Provider: 09:18 Events since last exam I am following her due to chest pain. Overnight, her chest pain resolved. She denies dyspnea, palpitations, syncope, or ankle edema. She would like to go home today. Certain portions of this document may have been dictated utilizing voice recognition technology. Inherent to this technology, typographical and grammatical errors may exist. As much as I am diligent to identify and correct these mistakes, some errors may remain in the document. Vitals Last set of Vitals Signs Vital Signs 06/01/22 06/01/22 08:27 08:49 Temp 36.6 Pulse 66 Resp 16 B/P (MAP) 122/79 (93) Pulse Ox 98 O2 Delivery Room Air Labs Labs Laboratory Tests 05/31/22 11:49 06/01/22 04:45 06/01/22 04:47 Exam Vital Signs Vital Signs Date Time Temp Pulse Resp B/P (MAP) Pulse Ox O2 Delivery O2 Flow Rate FiO2 06/01/22 08:49 98 Room Air 06/01/22 08:27 36.6 66 16 122/79 (93) Physical Exam General: Alert. No acute distress. Eye: No xanthelasma. HENT: Normocephalic. Neck: Jugular venous pressure does not appear elevated. Respiratory: Lungs are clear to auscultation. Respirations are non-labored. Breath sounds are equal. Symmetrical chest wall expansion. Cardiovascular: Normal rate. Regular rhythm. No murmur. No gallop. No edema. Gastrointestinal: Soft. Normal bowel sounds. Skin: Warm. Dry. Neurologic: Alert and oriented to person, place, time. Cranial nerves 3-11 grossly intact. Psychiatric: Cooperative. Appropriate mood & affect. Labs Laboratory Tests Test 05/31/22 11:49 05/31/22 13:00 05/31/22 13:21 05/31/22 17:25 Range/Units White Blood Count 7.1 4.3-11.0 10^3/uL Red Blood Count 4.45 3.80-5.11 10^6/uL Hemoglobin 13.1 11.5-16.0 g/dL Hematocrit 40 35-52 % Mean Corpuscular Volume 89 80-99 fL Mean Corpuscular Hemoglobin 29 25-34 pg Mean Corpuscular Hemoglobin Concent 33 32-36 g/dL Red Cell Distribution Width 12.9 10.0-14.5 % Platelet Count 249 130-400 10^3/uL Mean Platelet Volume 9.3 9.0-12.2 fL Immature Granulocyte % (Auto) 1 % Neutrophils (%) (Auto) 48 42-75 % Lymphocytes (%) (Auto) 42 12-44 % Monocytes (%) (Auto) 6 0-12 % Eosinophils (%) (Auto) 2 0-10 % Basophils (%) (Auto) 1 0-10 % Neutrophils # (Auto) 3.4 1.8-7.8 10^3/uL Lymphocytes # (Auto) 3.0 1.0-4.0 10^3/uL Monocytes # (Auto) 0.4 0.0-1.0 10^3/uL Eosinophils # (Auto) 0.2 0.0-0.3 10^3/uL Basophils # (Auto) 0.1 0.0-0.1 10^3/uL Immature Granulocyte # (Auto) 0.1 0.0-0.1 10^3/uL Prothrombin Time 12.7 12.2-14.7 SEC INR Comment 0.9 0.8-1.4 Activated Partial Thromboplast Time 26 24-35 SEC Sodium Level 140 135-145 MMOL/L Potassium Level 3.6 3.6-5.0 MMOL/L Chloride Level 104 98-107 MMOL/L Carbon Dioxide Level 25 21-32 MMOL/L Anion Gap 11 5-14 MMOL/L Blood Urea Nitrogen 13 7-18 MG/DL Creatinine 0.81 0.60-1.30 MG/DL Estimat Glomerular Filtration Rate 80 BUN/Creatinine Ratio 16 Glucose Level 135 H 70-105 MG/DL Calcium Level 9.8 8.5-10.1 MG/DL Corrected Calcium 9.5 8.5-10.1 MG/DL Magnesium Level 1.9 1.6-2.4 MG/DL Total Bilirubin 0.3 0.1-1.0 MG/DL Aspartate Amino Transf (AST/SGOT) 12 5-34 U/L Alanine Aminotransferase (ALT/SGPT) 14 0-55 U/L Alkaline Phosphatase 110 40-136 U/L Troponin I < 0.30 < 0.30 <0.30 NG/ML Total Protein 7.6 6.4-8.2 GM/DL Albumin 4.4 3.2-4.5 GM/DL Thyroid Stimulating Hormone (TSH) 2.38 0.35-4.94 UIU/ML Urine Color YELLOW Urine Clarity CLEAR Urine pH 6.0 5-9 Urine Specific Burke <=1.005 1.016-1.022 Urine Protein NEGATIVE NEGATIVE Urine Glucose (UA) NEGATIVE NEGATIVE Urine Ketones NEGATIVE NEGATIVE Urine Nitrite NEGATIVE NEGATIVE Urine Bilirubin NEGATIVE NEGATIVE Urine Urobilinogen 0.2 < = 1.0 MG/DL Urine Leukocyte Esterase 1+ H NEGATIVE Urine RBC (Auto) TRACE-I H NEGATIVE Urine RBC RARE /HPF Urine WBC RARE /HPF Urine Squamous Epithelial Cells 0-2 /HPF Urine Crystals NONE /LPF Urine Bacteria NEGATIVE /HPF Urine Casts NONE /LPF Urine Mucus NEGATIVE /LPF Urine Culture Indicated NO Urine Opiates Screen POSITIVE H NEGATIVE Urine Oxycodone Screen NEGATIVE NEGATIVE Urine Methadone Screen NEGATIVE NEGATIVE Urine Propoxyphene Screen NEGATIVE NEGATIVE Urine Barbiturates Screen NEGATIVE NEGATIVE Ur Tricyclic Antidepressants Screen NEGATIVE NEGATIVE Urine Phencyclidine Screen NEGATIVE NEGATIVE Urine Amphetamines Screen NEGATIVE NEGATIVE Urine Methamphetamines Screen NEGATIVE NEGATIVE Urine Benzodiazepines Screen NEGATIVE NEGATIVE Urine Cocaine Screen NEGATIVE NEGATIVE Urine Cannabinoids Screen NEGATIVE NEGATIVE D-Dimer 1.37 H 0.00-0.49 UG/ML Test 05/31/22 20:35 06/01/22 04:45 06/01/22 04:47 Range/Units Troponin I < 0.028 <0.028 NG/ML White Blood Count 7.0 4.3-11.0 10^3/uL Red Blood Count 4.05 3.80-5.11 10^6/uL Hemoglobin 12.0 11.5-16.0 g/dL Hematocrit 37 35-52 % Mean Corpuscular Volume 91 80-99 fL Mean Corpuscular Hemoglobin 30 25-34 pg Mean Corpuscular Hemoglobin Concent 32 32-36 g/dL Red Cell Distribution Width 12.9 10.0-14.5 % Platelet Count 221 130-400 10^3/uL Mean Platelet Volume 9.5 9.0-12.2 fL Sodium Level 140 135-145 MMOL/L Potassium Level 3.9 3.6-5.0 MMOL/L Chloride Level 106 98-107 MMOL/L Carbon Dioxide Level 23 21-32 MMOL/L Anion Gap 11 5-14 MMOL/L Blood Urea Nitrogen 13 7-18 MG/DL Creatinine 0.77 0.60-1.30 MG/DL Estimat Glomerular Filtration Rate 86 BUN/Creatinine Ratio 17 Glucose Level 91 70-105 MG/DL Calcium Level 9.1 8.5-10.1 MG/DL Triglycerides Level 165 H <150 MG/DL Cholesterol Level 190 < 200 MG/DL LDL Cholesterol Direct 132 H 1-129 MG/DL VLDL Cholesterol 33 5-40 MG/DL HDL Cholesterol 38 L 40-60 MG/DL Radiology ECHOCARDIOGRAM (06/01/2022): 1. Left ventricle: The cavity size is moderately increased. Wall thickness is normal. Systolic function is normal. The estimated ejection fraction is 55-60%. There were no regional wall motion abnormalities identified. The left ventricular diastolic function is indeterminate. 2. Pulmonary arteries: The estimated pulmonary artery systolic pressure is 32 mmHg assuming a right atrial pressure of 5 mmHg. Diagnosis/Problems Diagnosis/Problems (1) Chest pain Assessment & Plan: Exact etiology unclear. Some of her discomfort sounds cardiac whereas some of this more pleuritic type of chest discomfort sounds noncardiac. Her only cardiac risk factor seems to be hypertension although her LDL was slightly elevated on blood work from this admission. She does not have any ischemic changes on her electrocardiogram but does have early transition which could be a sign of an old posterior myocardial infarction or just secondary to lead placement on the chest leads. Her D-dimer was elevated so a CT angiogram of the chest was performed which did not show any evidence of a pulmonary embolism and there was no mention of coronary calcification. She was started on a proton pump inhibitor and her chest discomfort resolved. I suspect her chest discomfort could be due to esophageal reflux disease. I recommend she be discharged with the proton pump inhibitor. I have asked her to call my office on Friday and we will arrange for an outpatient nuclear stress test. I did not see any indication for cardiac catheterization. I recommend she continue on low strength aspirin until we complete her ischemic evaluation. (2) Abnormal electrocardiogram Assessment & Plan: As above, she has a borderline abnormal electrocardiogram showing early transition. However, there is no other obvious evidence of prior infarct or ischemia at rest. We will proceed as above. (3) Primary hypertension Assessment & Plan: Her blood pressure appears well controlled on her home dose of lisinopril. (4) Mixed hyperlipidemia Assessment & Plan: Her LDL level is slightly elevated. The hospitalist has or dered statin medication. This is not unreasonable. (5) Cardiomegaly Assessment & Plan: Her echocardiogram showed moderate left ventricular dilatation but with normal wall thickness and normal function. I suspect the left ventricular dilatation may just be due to her large stature. We will get another assessment of her left ventricular volumes at the time of her outpatient nuclear stress test. (6) Chronic venous insufficiency of lower extremity Assessment & Plan: She had a previous venous ablation of the right lower extremity. As above, her D-dimer was elevated but her CT angiogram did not show any evidence of pulmonary embolism. I do not see any indication for lower extremity venous ultrasound. DANIEL COLE JR, MD Jun 01, 2022 09:19
[2022-06-01] MEDS ORDERED: LISI10TA25 PO (09:32)
[2022-06-01] MEDS ORDERED: DICL75TA2 PO (09:32)
[2022-06-01] MEDS ORDERED: VENL150T PO (09:32)
[2022-06-01] MEDS ORDERED: ERGO1250 PO (09:32)
[2022-06-01] MEDS ORDERED: ASPI-1238 PO (09:58)
--- NOTE | 2022-06-01 11:35 | Discharge Inst-Simple/Standard ---
Discharge Inst-Standard Discharge Medications New, Converted or Re-Newed RX: Transmitted to Pharmacy Patient Instructions/Follow Up Plan of Care/Instructions/FU: Please continue to take your medications as written. Please follow up with your PCP and Dr Wong. Activity as Tolerated: Yes Discharge Diet: No Restrictions Return to The Hospital For: Chest pain, shortness of breath, fever, weakness, if you feel you are getting worse. CHELLY RIVERA MD Jun 01, 2022 11:35
[2022-06-01] MEDS ORDERED: PATIENT MAY USE OWN MEDS, ALL PO SCH ×2 (12:00→12:15)
== END 2022-06-01 11:21 | disposition home or self-care (01) ==
LOC: UNMERGE 11:42 → ER FS 11:42 → MERGE 11:42 → EDBD 11:42 → UNDOADMOB 15:33 → CSD 15:33 → UNDODISOB 06-01 11:50
PROVIDERS: ADMIT Family Medicine; ATTEND Family Medicine
DX: R07.9 Chest pain, unspecified (principal); I16.0 Hypertensive urgency
CPT/HCPCS: 36415; 71045; 71275; 80048; 80053; 80061; 80306; 81000; 83735; 84443; 84484; 85025; 85027; 85379; 85610; 85730; 93005; 93041; 93306; 96372; 96374; 96375

== ENCOUNTER → 2022-06-13 | Outpatient (CLI) | payer BC ==
[~2022-06-13] VITALS: Ht 177 cm; Wt 91.0 kg
[~2022-06-13] MED LIST: ASPI-1238 PO; ATOR20TA49 PO; CATHETER FLUSH 10 ML SYR IVP PRN; DICL75TA2 PO; ERGO1250 PO; LISI10TA25 PO; PANT40TA2 PO; VENL150T PO
[2022-06-13 09:10] VITALS: BP 155/95
--- NOTE | 2022-06-13 12:40 | NUCLEAR STRESS TEST ---
TREADMILL NUCLEAR STRESS TEST Date of procedure: 06/13/2022. Primary care provider: Gumaro Byrne MD. Admitting physician: Isael Wong Jr., MD. INDICATION: Abnormal electrocardiogram. BASELINE ELECTROCARDIOGRAM: Sinus bradycardia at [address]-T wave changes. STRESS TEST PROCEDURE: The patient was exercised for a total of 2 minutes and 44 seconds of the standard Max protocol achieving a maximum MET level of 3.8. The resting heart rate was 51 bpm and the peak heart rate was 135 bpm, which represents 87% of the maximum predicted heart rate. The resting blood pressure was 155/95 mmHg and the peak blood pressure was 245/105 mmHg. This represents a normal heart rate and a hypertensive blood pressure response to exercise. The test was stopped due to fatigue. There was no chest discomfort during the test. There were no arrhythmias during the test. There were no significant stress induced electrocardiogram changes. The patient exhibited fair exercise capacity for age. NUCLEAR PROCEDURE: The patient was administered 10.3 mCi of intravenous technetium 99m Tetrofosmin at rest for the rest images. The patient was subsequently administered 29.2 mCi of intravenous technetium 99 M Tetrofosmin at peak stress for the stress images. Following an appropriate wait after each injection, imaging was obtained. The images were subsequently processed and reformatted in the usual views. Gated imaging was obtained. The image quality was adequate with a mild degree of gastrointestinal attenuation artifact. CT attenuation correction was used as a adjunct to standard imaging. Both the corrected and uncorrected images were reviewed for interpretation. NUCLEAR RESULTS: There was normal myocardial perfusion in all segments without evidence of infarction or ischemia. There was normal left ventricular chamber size with an end-diastolic volume of 71 mL and an end-systolic volume of 26 mL. There was no evidence of transient ischemic dilatation. The TID ratio was 1.02. There was normal wall motion in all segments with a calculated ejection fraction of 64%. IMPRESSION: 1. Normal heart rate and a hypertensive blood pressure response to exercise. 2. There was no chest discomfort, arrhythmias, or electrocardiogram changes during the test. 3. The patient exhibited fair exercise capacity for age at 2 minutes and 44 seconds of the Max protocol. 4. There was normal myocardial perfusion in all segments without evidence of infarction or ischemia. 5. There was normal wall motion in all segments with a calculated ejection fraction of 64%. Certain portions of this document may have been dictated utilizing voice rec ognition technology. Inherent to this technology, typographical and grammatical errors may exist. As much as I am diligent to identify and correct these mistakes, some errors may remain in the document. ISAEL WONG JR, MD Jun 13, 2022 12:40
== END ==
LOC: CARD 07:20
PROVIDERS: ATTEND Internal Medicine Cardiovascular Disease
DX: R94.31 Abnormal electrocardiogram [ECG] [EKG] (principal)
CPT/HCPCS: 78452; 93017; A9502

== ENCOUNTER 2022-06-21 19:09 | Emergency (ER) | payer BC ==
[~2022-06-21] VITALS: Ht 177.8 cm; Wt 92.9 kg
[~2022-06-21 19:09] MED LIST changes: -CATHETER FLUSH 10 ML SYR IVP PRN
--- NOTE | 2022-06-21 19:37 | ED Chest Pain ---
General Chief Complaint: Chest Pain Stated Complaint: CP Source: patient Exam Limitations: no limitations History of Present Illness Date Seen by Provider: Jun 21, 2022 Time Seen by Provider: 19:28 Initial Comments Patient is a 66-year-old female who presents to the emergency department today with a chief complaint of substernal chest "heaviness" onset at about 230 this afternoon while she was sitting at her desk working. Patient states she waited about 30 minutes and then decided to go home. She states the pain seemed to radiate into her right jaw and also into her back. She states the longer the pain lasted she developed a little nausea and a little shortness of breath. She ultimately went to a local clinic in her hometown, they did an EKG and advised that she come to the emergency room for further evaluation. Patient recently, p resented last 3 weeks was admitted overnight for a "chest pain work-up". She did have an exercise stress test, saw Dr. Wong. She states that she passed her stress test but she does not think that she exercised as long as she needed to. She has had remote heart cath back in 2012 or . She is a breast cancer survivor from the early . She has not been nor is now a smoker. No recent illnesses such as fevers, chills, cough or congestion. No leg swelling or calf discomfort. No blood clot. She is on medication for blood pressure and a statin. No first-degree family relatives with young coronary artery disease. All other review of systems reviewed and negative except as stated. Timing/Duration: 4-6 hours, constant Severity/Quality: moderate ("5-6"), other ("heaviness") Location: central Radiation: jaw (right jaw and mid back) Activities at Onset: other (sitting at her desk) Prior CP/Workup: stress test (10 days ago; remote heart cath ) ASA po LCPC: Yes NTG SL LCPC: Yes Associated Symptoms: nausea/vomiting (nausea without vomiting), shortness of breath (mild) Allergies and Home Medications Allergies Coded Allergies: acetaminophen (Verified Allergy, Mild, Rash, 06/13/22) hydrocodone (Verified Allergy, Mild, Rash, 06/13/22) Penicillins (Verified Allergy, Unknown, Rash, 05/31/22) amoxicillin (Verified Allergy, Unknown, Rash, 05/31/22) Patient Home Medication List Home Medication List Reviewed: Yes Aspirin (Aspirin EC) 81 Mg Tablet.dr, 81 MG PO DAILY Prescribed by: DANIEL WONG JR, MD on 06/01/22957 Atorvastatin Calcium (Lipitor) 20 Mg Tablet, 20 MG PO DAILY Prescribed by: SHAYAN AGUERO on 06/01/22914 Diclofenac Sodium (Diclofenac Sodium) 75 Mg Tablet.dr, 75 MG PO BID Prescribed by: ARTEM IZQUIERDO on 06/01/22931 Ergocalciferol (Vitamin D2) (Vitamin D2) 1,250 Mcg (32940 Unit) Capsule, 1,250 MCG PO WEEK Prescribed by: ARTEM IZQUIERDO on 06/01/22931 Lisinopril (Lisinopril) 10 Mg Tablet, 10 MG PO DAILY Prescribed by: ARTEM IZQUIERDO on 06/01/22931 Pantoprazole Sodium (Protonix) 40 Mg Tablet.dr, 40 MG PO DAILY Prescribed by: SHAYAN AGUERO on 06/01/22916 Venlafaxine HCl (Venlafaxine HCl ER) 150 Mg Tab.er.24, 150 MG PO DAILY Prescribed by: ARTEM IZQUIERDO on 06/01/22931 Review of Systems Review of Systems Constitutional: see HPI EENTM: No Symptoms Reported Cardiovascular: Chest Pain Gastrointestinal: Nausea Genitourinary: No Symptoms Reported Skin: no symptoms reported Psychiatric/Neurological: No Symptoms Reported All Other Systems Reviewed Negative Unless Noted: Yes Past Lehcznn-Kvqfeo-Irefwx Hx Immunizations Up To Date First/Initial COVID19 Vaccinat: MAY 2021 MODERN Second COVID19 Vaccination Eran: JUL 2021 Past Medical History Surgery/Hospitalization HX: BILATERAL BREAST CA HYSTERECTOMY ANKLE SX Hypertension Breast What Type of Treatment Did You: Chemotherapy, Surgical Intervention Family Medical History Heart Disease Physical Exam Vital Signs Vital Signs - First Documented 06/21/22 19:27 Temp 36.4 Pulse 82 Resp 16 B/P (MAP) 133/79 (97) Pulse Ox 94 O2 Delivery Room Air Capillary Refill : Height, Weight, BMI Height: '" Weight: lbs. oz. kg; 29.04 BMI Method: General Appearance: No Apparent Distress, WD/WN HEENT: PERRL/EOMI Neck: Normal Inspection, Supple Respiratory: Lungs Clear, Normal Breath Sounds, No Accessory Muscle Use, No Respiratory Distress Cardiovascular: Regular Rate, Rhythm, Normal Peripheral Pulses Gastrointestinal: Normal Bowel Sounds, Non Tender, Soft Extremity: Normal Capillary Refill, Normal Inspection, Normal Range of Motion, Non Tender, No Calf Tenderness, No Pedal Edema Neurologic/Psychiatric: Alert, Oriented x3, No Motor/Sensory Deficits, Normal Mood/Affect, imaging nurse II-XII Norm as Tested Skin: Normal Color, Warm/Dry Progress/Results/Core Measures Results/Orders Lab Results Laboratory Tests Test 06/21/22 19:30 06/21/22 20:45 Range/Units White Blood Count 8.6 4.3-11.0 10^3/uL Red Blood Count 4.14 3.80-5.11 10^6/uL Hemoglobin 12.3 11.5-16.0 g/dL Hematocrit 37 35-52 % Mean Corpuscular Volume 89 80-99 fL Mean Corpuscular Hemoglobin 30 25-34 pg Mean Corpuscular Hemoglobin Concent 33 32-36 g/dL Red Cell Distribution Width 12.8 10.0-14.5 % Platelet Count 250 130-400 10^3/uL Mean Platelet Volume 9.2 9.0-12.2 fL Immature Granulocyte % (Auto) 1 % Neutrophils (%) (Auto) 57 42-75 % Lymphocytes (%) (Auto) 33 12-44 % Monocytes (%) (Auto) 6 0-12 % Eosinophils (%) (Auto) 3 0-10 % Basophils (%) (Auto) 1 0-10 % Neutrophils # (Auto) 4.9 1.8-7.8 10^3/uL Lymphocytes # (Auto) 2.8 1.0-4.0 10^3/uL Monocytes # (Auto) 0.5 0.0-1.0 10^3/uL Eosinophils # (Auto) 0.2 0.0-0.3 10^3/uL Basophils # (Auto) 0.1 0.0-0.1 10^3/uL Immature Granulocyte # (Auto) 0.0 0.0-0.1 10^3/uL Prothrombin Time 13.4 12.2-14.7 SEC INR Comment 1.0 0.8-1.4 Activated Partial Thromboplast Time 24 24-35 SEC Sodium Level 143 135-145 MMOL/L Potassium Level 3.6 3.6-5.0 MMOL/L Chloride Level 108 H 98-107 MMOL/L Carbon Dioxide Level 22 21-32 MMOL/L Anion Gap 13 5-14 MMOL/L Blood Urea Nitrogen 9 7-18 MG/DL Creatinine 0.77 0.60-1.30 MG/DL Estimat Glomerular Filtration Rate 86 BUN/Creatinine Ratio 12 Glucose Level 136 H 70-105 MG/DL Calcium Level 9.4 8.5-10.1 MG/DL Corrected Calcium 9.3 8.5-10.1 MG/DL Magnesium Level 2.0 1.6-2.4 MG/DL Total Bilirubin 0.5 0.1-1.0 MG/DL Aspartate Amino Transf (AST/SGOT) 11 5-34 U/L Alanine Aminotransferase (ALT/SGPT) 12 0-55 U/L Alkaline Phosphatase 105 40-136 U/L Myoglobin 24.8 10.0-92.0 NG/ML Troponin I < 0.028 <0.028 NG/ML Total Protein 7.3 6.4-8.2 GM/DL Albumin 4.1 3.2-4.5 GM/DL Lipase 24 8-78 U/L My Orders Orders - NGHIA FRY MD Cbc With Automated Diff (06/21/22 19:35) Magnesium (06/21/22 19:35) Chest 1 View, Ap/Pa Only (06/21/22 19:35) Ekg Tracing (06/21/22 19:35) Comprehensive Metabolic Panel (06/21/22 19:35) Myoglobin Serum (06/21/22 19:35) Protime With Inr (06/21/22 19:35) Partial Thromboplastin Time (06/21/22 19:35) O2 (06/21/22 19:35) Monitor-Rhythm Ecg Trace Only (06/21/22 19:35) Lipid Panel (06/22/22 06:00) Ed Iv/Invasive Line Start (06/21/22 19:35) Troponin I Chandrika (06/21/22 19:35) Sucralfate Tablet (Carafate Tablet) (06/21/22 20:15) Antacid Suspension (Mylanta Suspension (06/21/22 20:15) Lidocaine 2% Viscous 15 Ml (Xylocaine Vi (06/21/22 20:15) Lipase (06/21/22 20:46) Ketorolac Injection (Toradol Injection) (06/21/22 21:15) Medications Given in ED Current Medications Medications Dose Ordered Sig/Gianni Route Start Time Stop Time Status Last Admin Dose Admin Al Hydrox/Mg Hydrox/Simethicone 30 ml ONCE ONCE PO 06/21/22 20:15 06/21/22 20:16 DC 06/21/22 20:53 30 ML Lidocaine HCl 5 ml ONCE ONCE PO 06/21/22 20:15 06/21/22 20:16 DC 06/21/22 20:54 5 ML Sucralfate 1 gm ONCE ONCE PO 06/21/22 20:15 06/21/22 20:16 DC 06/21/22 20:54 1 GM Vital Signs/I&O 06/21/22 19:27 Temp 36.4 Pulse 82 Resp 16 B/P (MAP) 133/79 (97) Pulse Ox 94 O2 Delivery Room Air Progress Progress Note #1: Time: 20:47 Progress Note Patient feels better after the GI cocktail. She states she has a little bit of a backache still. She advised me that she was told that she has gallstones as well. I am going to add a lipase. I am can give her little Toradol for her pain in her back. She does state that this pain in her chest feels different from her normal daily heartburn related discomfort. It may be related to her gallstones. Her troponin approximately 5 hours after the onset of symptoms is negative which is very reassuring. She has low risk for coronary artery disease especially in light of a negative stress 3 weeks ago, normal troponin, non- smoker. Her EKG just shows some nonspecific ST-T wave changes without ectopy or ST segment elevation or depression. Her vital signs have been great. I recommended she follow-up with her primary care physician as well as with Dr. Wong. We will await the lipase results prior to sending her home. All questions are sought and answered. Progress Note #2: Time: 21:16 Progress Note Lipase normal. Toradol being given. VSS. I reviewed her stress test - she had normal wall motion and EF 64% (calculated). exercised for 2 1/2 min ananda protocol. NOrmal hypertensive response to exercise. She states she has follow up scheduled in [address] Wong. Return precautions provided. Initial ECG Impression Date: Jun 21, 2022 Initial ECG Impression Time: 19:50 Initial ECG Rate: 66 Initial ECG Rhythm: Normal Sinus Initial ECG Intervals CT interval 167 QRS 98 QTC 400 Initial ECG Impression: Nonspecific Changes Diagnostic Imaging Diagonstic Imaging: Xray Plain Films/CT/US/NM/MRI: chest Comments [facility] [place], [place] NAME: ARNEL GODOY [facility] REC#: [id number] PT STATUS: REG ER : 1955 PHYSICIAN: NGHIA FRY MD ADMIT DATE: 06/21/22/ER Draft Date of Exam:06/21/22 CHEST 1 VIEW, AP/PA ONLY INDICATION: Chest pain EXAMINATION: Chest 06/21/2022 COMPARISON: 05/31/2022 FINDINGS: There is atelectasis at the left lung base. The remaining lungs appear clear. No infiltrates or effusions. No pneumothorax. Heart and pulmonary vasculature normal. IMPRESSION: 1. Minimal left base atelectasis. Dictated on workstation # [id number] Dict: 06/21/221953 Trans: 06/21/221999 [facility] [id number] Interpreted by: TITUS LO MD Electronically signed by: Departure Impression Primary Impression: Chest pain Qualified Codes: R07.9 - Chest pain, unspecified Additional Impression: GERD (gastroesophageal reflux disease) Qualified Codes: K21.9 - Gastro-esophageal reflux disease without esophagitis Disposition: HOME, SELF-CARE Condition: Improved Departure-Patient Inst. Decision time for Depature: 21:18 Referrals: MARY RODRIGUEZ (PCP) Primary Care Physician FLORI COLEY MD (Family) Primary Care Physician DANIEL WONG JR, MD Patient Instructions: Chest Pain That Is Not Caused by the Heart (DC) Add. Discharge Instructions: Continue your daily medications as prescribed by your primary care provider. As you have a history of gallstones, watch your intake of fatty foods. This can cause gallbladder discomfort with digestion. If you develop a return of chest pain especially with nausea/vomiting, shortness of breath or sweating while exerting yourself please come back to the emergency department for reevaluation. Keep your follow-up appointment scheduled with Dr. Wong in 2 weeks. Copy Copies To 1: DANIEL WONG JR, MD CORNELIUS, KATHRYN M MD Jun 21, 2022 19:37
[2022-06-21 19:40] LABS: BASOPHILS # (AUTO) 0.1 10^3/uL (0.0-0.1); BASOPHILS % (AUTO) 1 % (0-10); EOSINOPHILS # (AUTO) 0.2 10^3/uL (0.0-0.3); EOSINOPHILS % (AUTO) 3 % (0-10); HEMATOCRIT 37 % (35-52); HEMOGLOBIN 12.3 g/dL (11.5-16.0); LYMPHOCYTES # (AUTO) 2.8 10^3/uL (1.0-4.0); LYMPHOCYTES % (AUTO) 33 % (12-44); MEAN CORPUSCULAR HEMOGLOBIN 30 pg (25-34); MEAN CORPUSCULAR HGB CONC 33 g/dL (32-36); MEAN CORPUSCULAR VOLUME 89 fL (80-99); MEAN PLATELET VOLUME 9.2 fL (9.0-12.2); MONOCYTES # (AUTO) 0.5 10^3/uL (0.0-1.0); MONOCYTES % (AUTO) 6 % (0-12); NEUTROPHILS # (AUTO) 4.9 10^3/uL (1.8-7.8); NEUTROPHILS % (AUTO) 57 % (42-75); PLATELET COUNT 250 10^3/uL (130-400); WHITE BLOOD COUNT 8.6 10^3/uL (4.3-11.0)
[2022-06-21 19:43] LABS: ALBUMIN 4.1 GM/DL (3.2-4.5)
[2022-06-21 19:44] LABS: CALCIUM 9.4 MG/DL (8.5-10.1)
[2022-06-21 19:45] LABS: TOTAL PROTEIN 7.3 GM/DL (6.4-8.2)
[2022-06-21 19:47] LABS: BILIRUBIN,TOTAL 0.5 MG/DL (0.1-1.0); PROTHROMBIN TIME PATIENT 13.4 SEC (12.2-14.7)
[2022-06-21 19:49] LABS: CREATININE SERUM 0.77 MG/DL (0.60-1.30)
[2022-06-21 19:59] LABS: POTASSIUM 3.6 MMOL/L (3.6-5.0)
--- NOTE | 2022-06-21 20:01 | Diagnostic Imaging Report ---
INDICATION: Chest pain EXAMINATION: Chest 06/21/2022 COMPARISON: 05/31/2022 FINDINGS: There is atelectasis at the left lung base. The remaining lungs appear clear. No infiltrates or effusions. No pneumothorax. Heart and pulmonary vasculature normal. IMPRESSION: 1. Minimal left base atelectasis. Dictated by: Dictated on workstation # [email or web address]
[2022-06-21] MEDS ORDERED: LIDOCAINE 2% VISCOUS 15 ML UDC PO ONE (20:15)
[2022-06-21] MEDS ORDERED: ANTACID SUSP 30 ML UDC (MYLANTA) PO ONE (20:15)
[2022-06-21] MEDS ORDERED: SUCRALFATE 1 GM (CARAFATE) TAB PO ONE (20:15)
[2022-06-21] MEDS ORDERED: KETOROLAC 30 MG/ML VIAL IVP ONE (21:15)
[2022-06-21 21:27] VITALS: BP 132/81
== END 2022-06-21 21:28 | disposition home or self-care (01) ==
LOC: EDUNIT# 19:09 → ER 19:10
DX: K21.9 Gastro-esophageal reflux disease without esophagitis (principal)
CPT/HCPCS: 36415; 71045; 80053; 83690; 83735; 83874; 84484; 85025; 85610; 85730; 93005; 93041

== ENCOUNTER 2022-07-24 05:48 | Outpatient (CLI) | payer BC ==
[~2022-07-24] VITALS: Ht 177.8 cm; Wt 94.3 kg
[2022-07-24] MEDS ORDERED: CARV3.122 PO (08:23)
== END 2022-07-24 08:28 ==
LOC: PREOP 05:48
PROVIDERS: ATTEND Surgery
DX: Z01.818 Encounter for other preprocedural examination (principal); K21.9 Gastro-esophageal reflux disease without esophagitis